=== PATIENT | female | born 1970 | race Caucasian/White ===

== ENCOUNTER 2016-10-25 06:38 | Emergency (ER) | payer SELFPAY ==
[~2016-10-25] VITALS: Ht 157.5 cm; Wt 61.4 kg
[2016-10-25 06:48] VITALS: BP 106/76; PULSE 86; RESP 16; TEMP 98.2; O2SAT 99
[2016-10-25] MEDS ORDERED: LANTUS2P SQ (06:59)
[2016-10-25] MEDS ORDERED: LIPI80TA PO (06:59)
[2016-10-25] MEDS ORDERED: NOVOLOGP2 SQ (06:59)
[2016-10-25] MEDS ORDERED: CLON.5 PO (06:59)
[2016-10-25] MEDS ORDERED: LOSA25TA PO ×2 (06:59→07:49)
[2016-10-25] MEDS ORDERED: LYRI150C PO ×2 (06:59→07:49)
[2016-10-25] MEDS ORDERED: HYDR-3533 PO (06:59)
[2016-10-25] MEDS ORDERED: VENL150T PO ×2 (06:59→07:49)
[2016-10-25 07:25] LABS: BLOOD, URINE LARGE (NEG); KETONE, URINE NEG (NEG); PH, URINE 5.5 (5.0-8.5)
[2016-10-25 07:32] LABS: GLUCOSE,URINE 1000 OR GREATER mg/dL (NEG); METHOD OF COLLECTION CLEAN CATCH; NITRITE,URINE POS (NEG); URINE COLOR YELLOW (YELLW/STRAW)
[2016-10-25 07:33] LABS: BACTERIA, URINE MANY /hpf; COMMENT (UR) CULTURE INDICATED; CULTURE IF INDICATED CULTURE INDICATED; SQUAMOUS EPITHELIAL CELL URINE 0-5 /hpf (0-5); WBC, URINE 100-200 /hpf (0-5)
[2016-10-25] MEDS ORDERED: CIPR500T2 PO (07:49)
[2016-10-25] MEDS ORDERED: ATOR1TAB18 PO (07:49)
--- NOTE | 2016-10-25 07:49 | PD ---
HPI Chief Complaint: Flank/Kidney Pain Time Seen by Provider: 07:00 Travel History International Travel<30 days: No Contact w/Intl Traveler<30days: No Traveled to known affect area: No History of Present Illness HPI This is a 46-year-old female who presents to the emergency department with 1 week of severe dysuria, frequency, urgency associated with moderate severity lower abdominal pain. She says she started to notice some tenderness in her back when someone gave her a hug. Her symptoms have been constant throughout the week and worsening. The patient has a very complex situation at home as she relocated herself to [place] to take care of her [id number] who had terminal cancer and was on hospice. She is currently unemployed and starting a new job tomorrow but doesn't have any health insurance so she is ran out of most of her medications and says she can't afford them. She has been feeling depressed but she denies any suicidal ideation and she does have some support system with neighbors in the community. PFSH Past Medical History Depression: Yes High Cholesterol: Yes Diabetes: Yes Patient Takes Glucophage: No Hypertension: Yes Musculoskeletal: Yes (SPINAL ARTHRITIS, BOLDGING DISCS) Tetanus Vaccination: < 5 Years Influenza Vaccination: Yes ?: Not Tubal Ligation: Yes Past Surgical History Hysterectomy: Yes Social History Alcohol Use: No Tobacco Use: Yes (1/2 PPD) Substance Use: Yes (WEED ON SAT) Allergies-Medications (Allergen,Severity, Reaction): Coded Allergies: No Known Allergies (Unverified , 10/25/16) Reported Meds & Prescriptions Reported Meds & Active Scripts Active Reported Novolog Inj (Insulin Aspart) 1,000 Unit/10 Ml Vial 0 SQ DIRECTED Sliding Scale as directed. Lantus Inj (Insulin Glargine) 1,000 Unit/10 Ml Vial 20 Units SQ HS Lipitor (Atorvastatin Calcium) 80 Mg Tab 80 Mg PO HS Klonopin (Clonazepam) 0.5 Mg Tab 0.5 Mg PO HS Lortab (Hydrocodone-Acetaminophen) 5-325 Mg Tab 1 Tab PO Q6H PRN Venlafaxine ER 24 HR (Venlafaxine HCl) 150 Mg Tab 150 Mg PO DAILY Losartan (Losartan Potassium) 25 Mg Tab 25 Mg PO DAILY Lyrica (Pregabalin) 150 Mg Cap 150 Mg PO BID Review of Systems Except as stated in HPI: all other systems reviewed are Neg Physical Exam Narrative GENERAL:Well appearing, no acute distress SKIN: Warm and dry. HEAD: Atraumatic. Normocephalic. EYES: Pupils equal and round. No injection or drainage. ENT: Moist mucous membranes NECK: Trachea midline. CARDIOVASCULAR: Regular rate and rhythm. No murmur appreciated. RESPIRATORY: Clear to auscultation. Breath sounds equal bilaterally. GASTROINTESTINAL: Abdomen soft, mildly palpation in the suprapubic region with no rebound or guarding. : Bilateral CVA tenderness. MUSCULOSKELETAL: No obvious deformities. NEUROLOGICAL: Awake and alert. No obvious cranial nerve deficits. Moving all extremities. PSYCHIATRIC: Appropriate mood and affect; insight and judgment normal. Data Data Last Documented VS Vital Signs Date Time Temp Pulse Resp B/P Pulse Ox O2 Delivery O2 Flow Rate FiO2 10/25/16 06:48 98.2 86 16 106/76 99 Orders Urinalysis - C+S If Indicated (10/25/16 07:15) Urine Culture (10/25/16 07:22) Labs Laboratory Tests Test 10/25/16 07:22 Urine Collection Type CLEAN CATCH Urine Color YELLOW Urine Turbidity SLIGHT Urine pH 5.5 Urine Specific [place] 1.022 Urine Protein 100 mg/dL Urine Glucose (UA) 1000 OR GREATER mg/dL Urine Ketones NEG mg/dL Urine Occult Blood LARGE Urine Nitrite POS Urine Bilirubin NEG Urine Leukocyte Esterase TRACE Urine RBC 20-24 /hpf Urine WBC 100-200 /hpf Urine WBC Clumps MANY Urine Squamous Epithelial 0-5 /hpf Cells Urine Bacteria MANY /hpf Microscopic Urinalysis Comment CULTURE INDICATED Urine Collection Time 07:22 [facility] Medical Decision Making Medical Screen Exam Complete: Yes Emergency Medical Condition: Yes Interpretation(s) Urinalysis: Urinary tract infection Differential Diagnosis Urinary tract infection, pyelonephritis, sepsis Narrative Course This is a 46-year-old female who presents to the emergency department with symptoms classic for pyelonephritis. She is nontoxic appearing and afebrile. I think it's reasonable to defer IV antibiotics and labs secondary to cost given the patient's uninsured status and she agrees. I will refill her basic medications. She was given information regarding patient assistance. Patient will be discharged with a prescription for ciprofloxacin. Diagnosis Primary Impression: Pyelonephritis Additional Impression: Depression Qualified Code: F33.1 - Moderate episode of recurrent major depressive disorder Patient Instructions: General Instructions Additional Instructions: If you develop fever, persistent vomiting, back pain, or inability to eat return to the emergency department as your urine infection may have progressed to a kidney infection. Complete your antibiotics as prescribed. Stay well hydrated with Gatorade or water. Followup with your primary care physician in 2-3 days if your symptoms have not resolved. Follow up with Mayi Sanchez in regards to psychiatric or substance related issues at: [address] [place] [address] Med/Other Pt SpecificInfo: Prescription(s) given Scripts Venlafaxine ER 24 HR 150 Mg [id number] Mg PO DAILY #30 TAB Ref 0 Prov:Farzana Cartagena MD 10/25/16 Atorvastatin 80 Mg Tab80 Mg PO HS #30 TAB Ref 0 Prov:Farzana Cartagena MD 10/25/16 Pregabalin (Lyrica)150 Mg [id number] Mg PO BID #60 CAP Ref 0 Prov:Farzana Cartagena MD 10/25/16 Losartan 25 Mg Tab25 Mg PO DAILY #30 TAB Ref 0 Prov:Farzana Cartagena MD 10/25/16 Ciprofloxacin 500 Mg [id number] Mg PO BID 7 Days Prov:Farzana Cartagena MD 10/25/16 Disposition: 01 DISCHARGE HOME Condition: Stable Farzana Cartagena MD Oct 25, 2016 07:49
== END 2016-10-25 08:04 | disposition home or self-care (01) ==
LOC: PHED 06:38
DX: N12 Tubulo-interstitial nephritis, not specified as acute or chronic (principal); F33.9 Major depressive disorder, recurrent, unspecified; E78.00 Pure hypercholesterolemia, unspecified; E11.9 Type 2 diabetes mellitus without complications; I10 Essential (primary) hypertension; F17.210 Nicotine dependence, cigarettes, uncomplicated; F12.10 Cannabis abuse, uncomplicated; Z79.4 Long term (current) use of insulin
CPT/HCPCS: 81001; 87077; 87086; 87186; 99284

== ENCOUNTER 2016-12-14 20:17 | Emergency (ER) | payer SELFPAY ==
[~2016-12-14] VITALS: Ht 157.5 cm; Wt 62.4 kg
[~2016-12-14 20:17] MED LIST: ATOR1TAB18 PO; CIPR500T2 PO; CLON.5 PO; HYDR-3533 PO; LANTUS2P SQ; LIPI80TA PO; LOSA25TA PO; LYRI150C PO; NOVOLOGP2 SQ; VENL150T PO
[2016-12-14 20:23] VITALS: BP 158/90; PULSE 91; RESP 16; TEMP 98.1; O2SAT 99
[2016-12-14] MEDS ORDERED: METF500T PO (20:35)
[2016-12-14] MEDS ORDERED: GABA800T PO (20:35)
[2016-12-14] MEDS ORDERED: SODIUM CHLORIDE 0.9% FLUSH 10 ML FLUSH IVF PRN (21:00)
[2016-12-14 21:15] VITALS: RESP 16; O2SAT 96
--- NOTE | 2016-12-14 21:25 | PD ---
HPI Chief Complaint: Laceration/Skin Injury Time Seen by Provider: 20:41 Travel History International Travel<30 days: No Contact w/Intl Traveler<30days: No Traveled to known affect area: No History of Present Illness HPI 46-year-old female with history of insulin dependent diabetes, from [place], who is here now because she is taking care of her parents estates after they , here for evaluation of painful skin cracks/laceration to the bottom of her right great toe. The patient reports history of diabetic neuropathy. She does have a callus on the medial/plantar aspect of this toe which has been evaluated by podiatry in the past. She states that a couple days ago she noticed a skin crack at the plantar aspect/base of her right great toe. Today this area became very painful for her. 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 She also tells me that she recently lost her insurance, and has been sparingly using the rest of whatever insulin she has left. PFSH Past Medical History Depression: Yes High Cholesterol: Yes Diabetes: Yes Hypertension: Yes Musculoskeletal: Yes (SPINAL ARTHRITIS, BOLDGING DISCS) Tubal Ligation: Yes Past Surgical History Hysterectomy: Yes Social History Alcohol Use: No Tobacco Use: Yes (1/2 PPD) Substance Use: Yes (WEED ON SAT) Allergies-Medications (Allergen,Severity, Reaction): Coded Allergies: No Known Allergies (Unverified , 12/14/16) Reported Meds & Prescriptions Reported Meds & Active Scripts Active Keflex (Cephalexin) 500 Mg Cap 500 Mg PO Q8H Reported Gabapentin 800 Mg Tab 800 Mg PO TID Metformin (Metformin HCl) 500 Mg Tab 500 Mg PO BIDPC With meals Novolog Inj (Insulin Aspart) 1,000 Unit/10 Ml Vial 0 SQ DIRECTED Sliding Scale as directed. Lantus Inj (Insulin Glargine) 1,000 Unit/10 Ml Vial 20 Units SQ HS Klonopin (Clonazepam) 0.5 Mg Tab 0.5 Mg PO HS Review of Systems Except as stated in HPI: all other systems reviewed are Neg Physical Exam Narrative GENERAL: Well-developed, well-nourished, comfortable, no acute distress. SKIN: Focused skin assessment warm/dry. Right great toe on the medial/plantar aspect there is a large/firm callus. Just proximal to this at the base of her great toe on the plantar aspect there is a horizontal/superficial skin crack approximately 3 cm in length. There is no surrounding warmth or erythema. No ulcerations. HEAD: Atraumatic. Normocephalic. EYES: Pupils equal and round. No scleral icterus. No injection or drainage. ENT: Mucous membranes pink and moist. NECK: Trachea midline. No JVD. CARDIOVASCULAR: Regular rate and rhythm. Bilateral dorsalis pedis pulses are brisk and equal. RESPIRATORY: No accessory muscle use. MUSCULOSKELETAL: Skin exam as above. No obvious deformities. No clubbing. No cyanosis. No edema. NEUROLOGICAL: Awake and alert. No obvious cranial nerve deficits. Motor grossly within normal limits. Normal speech. PSYCHIATRIC: Appropriate mood and affect; insight and judgment normal. Data Data Last Documented VS Vital Signs Date Time Temp Pulse Resp B/P Pulse Ox O2 Delivery O2 Flow Rate FiO2 12/14/16 21:59 82 16 139/73 96 Nasal Cannula 12/14/16 20:23 98.1 Orders Complete Blood Count With Diff (12/14/16 20:57) Comprehensive Metabolic Panel (12/14/16 20:57) Beta Hydroxybutyrate (Acetone) (12/14/16 20:57) Blood Glucose (12/14/16 20:57) Ecg Monitoring (12/14/16 20:57) Iv Access Insert/Monitor (12/14/16 20:57) Oximetry (12/14/16 20:57) NPO (12/14/16 20:57) Sodium Chloride 0.9% Flush (Ns Flush) (12/14/16 21:00) Toe (Min 2vws) (12/14/16 ) Cephalexin (Keflex) (12/14/16 22:15) Labs Laboratory Tests Test 12/14/16 21:15 White Blood Count 11.8 TH/MM3 Red Blood Count 4.72 MIL/MM3 Hemoglobin 13.7 GM/DL Hematocrit 39.2 % Mean Corpuscular Volume 82.9 FL Mean Corpuscular Hemoglobin 29.0 PG Mean Corpuscular Hemoglobin 34.9 % Concent Red Cell Distribution Width 13.5 % Platelet Count 331 TH/MM3 Mean Platelet Volume 7.5 FL Neutrophils (%) (Auto) 67.0 % Lymphocytes (%) (Auto) 23.3 % Monocytes (%) (Auto) 6.7 % Eosinophils (%) (Auto) 2.4 % Basophils (%) (Auto) 0.6 % Neutrophils # (Auto) 7.9 TH/MM3 Lymphocytes # (Auto) 2.7 TH/MM3 Monocytes # (Auto) 0.8 TH/MM3 Eosinophils # (Auto) 0.3 TH/MM3 Basophils # (Auto) 0.1 TH/MM3 CBC Comment DIFF FINAL Differential Comment Sodium Level 141 MEQ/L Potassium Level 3.3 MEQ/L Chloride Level 107 MEQ/L Carbon Dioxide Level 25.0 MEQ/L Anion Gap 9 MEQ/L Blood Urea Nitrogen 16 MG/DL Creatinine 0.65 MG/DL Estimat Glomerular Filtration 98 ML/MIN Rate Random Glucose 120 MG/DL Calcium Level 8.3 MG/DL Total Bilirubin 0.5 MG/DL Aspartate Amino Transf 22 U/L (AST/SGOT) Alanine Aminotransferase 26 U/L (ALT/SGPT) Alkaline Phosphatase 65 U/L Total Protein 7.1 GM/DL Albumin 3.3 GM/DL B-Hydroxybutyrate 0.18 MMOL/L [facility] Medical Decision Making Medical Screen Exam Complete: Yes Emergency Medical Condition: Yes Differential Diagnosis Superficial toe wound in a diabetic, osteomyelitis unlikely, cellulitis unlikely , hyperglycemia/uncontrolled diabetes, DKA Narrative Course Vital signs show heart rate 91, blood pressure 158/90, pulse ox 99% on room air , oral temp of 98.1F. CBC is essentially unremarkable. CMP is remarkable for potassium 3.3, otherwise unremarkable. Random glucose is 120. Beta hydroxybutyrate is 0.18. Right great toe x-ray: Unremarkable exam of the right first toe. This is a diabetic patient who is here for a superficial wound on her right great toe. There are no signs of infection. This is a skin crack on the dorsal aspect of the base of the toe. She also has a large callus/bunion on the medial/plantar aspect of this toe which has been there for several years. At this point my plan is to start the patient on Keflex as prophylaxis. She has no local primary care physician. I have had financial counselor speak to her about possibly obtaining patient assistance in following up in our clinic. I will also give her the name of the security control center operator on-call to follow-up with this week. I also told her that she can return to the emergency Department in 2-3 days for a wound check, but also informed her on when to return to the emergency Department sooner. She verbalizes understanding and agreement with plan. Diagnosis Primary Impression: Cracked skin on feet Referrals: Jackie Solorzano DPDior 3 days Ticker Maintainer Primary Care Physician 3 days Additional Instructions: Follow-up with a primary care physician this week. Follow-up with security control center operator Dr. Solorzano this week. Return to the emergency department for worsening symptoms or any other concerns as discussed. Scripts Fluconazole (Diflucan)150 Mg [id number] Mg PO ONCE #1 TAB Ref 0 Prov:Chirag Oliver MD 12/14/16 Cephalexin (Keflex)500 Mg Lpu001 Mg PO Q8H #30 CAP Ref 0 Prov:Chirag Oliver MD 12/14/16 Disposition: 01 DISCHARGE HOME Condition: Stable Chirag Oliver MD Dec 14, 2016 21:24
[2016-12-14 21:35] LABS: AUTOMATED NEUTROPHIL # 7.9 TH/MM3 (1.8-7.7); BASOPHIL # 0.1 TH/MM3 (0-0.2); BASOPHIL % 0.6 % (0.0-2.0); EOSINOPHIL # 0.3 TH/MM3 (0-0.4); EOSINOPHIL % 2.4 % (0.0-4.0); HEMATOCRIT 39.2 % (35.0-46.0); HEMO FLAGS DIFF FINAL; LYMPH % 23.3 % (9.0-44.0); LYMPHOCYTE # 2.7 TH/MM3 (1.0-4.8); MEAN CELL VOLUME 82.9 FL (80.0-100.0); MEAN CORPUSCULAR HGB CONC 34.9 % (32.0-36.0); MONO % 6.7 % (0.0-8.0); PLATELET COUNT 331 TH/MM3 (150-450); RED BLOOD COUNT 4.72 MIL/MM3 (4.00-5.30); RED CELL DISTRIBUTION WIDTH 13.5 % (11.6-17.2); WHITE BLOOD COUNT 11.8 TH/MM3 (4.0-11.0)
[2016-12-14 21:43] LABS: CHLORIDE 107 MEQ/L (98-107); POTASSIUM 3.3 MEQ/L (3.5-5.1); SODIUM (NA) 141 MEQ/L (136-145)
[2016-12-14 21:47] LABS: ANION GAP 9 MEQ/L (5-15); BLOOD UREA NITROGEN 16 MG/DL (7-18)
[2016-12-14 21:50] LABS: ALT (GPT) 26 U/L (10-53); AST (GOT) 22 U/L (15-37); GLOMERULAR FILTRATION RATE 98 ML/MIN (>89)
[2016-12-14 21:51] LABS: BETA-HYDROXYBUTYRATE 0.18 MMOL/L (0.00-0.39); TOTAL BILIRUBIN ADULT 0.5 MG/DL (0.2-1.0)
[2016-12-14 21:52] LABS: ALKALINE PHOSPHATASE 65 U/L (45-117)
--- NOTE | 2016-12-14 21:55 | RADHPO ---
EXAM DATE/TIME: 12/14/2016 21:21 [facility] COMPARISON: No previous studies available for comparison. INDICATIONS : Right foot, great toe pain and laceration from unknown injury. MEDICAL HISTORY : Diabetes mellitus type II. Neuropathy. SURGICAL HISTORY : None. ENCOUNTER: Initial ACUITY: 3 days PAIN SCORE: 8/10 LOCATION: Right foot, great toe. FINDINGS: Examination of the first digit of the right foot demonstrates no evidence of fracture or dislocation. No radiopaque foreign bodies are seen. The soft tissues are intact. CONCLUSION: Unremarkable examination of the right first toe. Igor Cheek Jr., MD on December 14, 2016 at 21:53 Board Certified Radiologist. This report was verified electronically.
[2016-12-14 21:59] VITALS: BP 139/73; PULSE 82; RESP 16; O2SAT 96
[2016-12-14] MEDS ORDERED: CEPH-460 PO (22:10)
[2016-12-14] MEDS ORDERED: CEPHALEXIN MONOHYDRATE 500 MG CAP PO ONE (22:15)
[2016-12-14 22:35] VITALS: BP 131/63; PULSE 77; RESP 16; O2SAT 97
[2016-12-14] MEDS ORDERED: DIFL150T PO (22:36)
== END 2016-12-14 22:43 | disposition home or self-care (01) ==
LOC: PHED 20:17
DX: S90.931A Unspecified superficial injury of right great toe, initial encounter (principal); L84 Corns and callosities; E11.9 Type 2 diabetes mellitus without complications; I10 Essential (primary) hypertension; E78.00 Pure hypercholesterolemia, unspecified; F17.200 Nicotine dependence, unspecified, uncomplicated; X58.XXXA Exposure to other specified factors, initial encounter; Z79.4 Long term (current) use of insulin; Z86.69 Personal history of other diseases of the nervous system and sense organs; Z86.59 Personal history of other mental and behavioral disorders; Z87.39 Personal history of other diseases of the musculoskeletal system and connective tissue
CPT/HCPCS: 73660; 80053; 82010; 85025; 99283

== ENCOUNTER 2017-10-24 10:45 | Emergency (ER) | payer SELFPAY ==
[~2017-10-24] VITALS: Ht 157.5 cm; Wt 57.1 kg
[~2017-10-24 10:45] MED LIST changes: -ATOR1TAB18 PO; +CEPH-460 PO; -CIPR500T2 PO; +DIFL150T PO; +GABA800T PO; -HYDR-3533 PO; -LIPI80TA PO; -LOSA25TA PO; -LYRI150C PO; +METF500T PO; -VENL150T PO
[2017-10-24 11:08] VITALS: BP 152/83; PULSE 90; RESP 18; TEMP 98.6; O2SAT 99
[2017-10-24] MEDS ORDERED: DIFL150T PO (11:49)
[2017-10-24] MEDS ORDERED: BACT800T5 PO (11:49)
--- NOTE | 2017-10-24 11:54 | PD ---
HPI Chief Complaint: Skin Problem Time Seen by Provider: 11:30 Travel History International Travel<30 days: No Contact w/Intl Traveler<30days: No Traveled to known affect area: No History of Present Illness HPI 47-year-old female that presents to the ED for evaluation of possible infection to her right ankle. Per patient she's had this lesion for about a week. Per patient is not getting better. Patient has a history of diabetes and uses insulin. She states that she noted after pain. Per patient is becoming more red and she is concerned about infection because of her diabetes. She has neuropathy says she has minimal feeling on her legs. Denies any actual injury. No fevers chills or sweats. No allergies to medication. Hasn't seen anybody for this. Pain is 2 out of 10 if any. No other medical issues. No history of MRSA or IV drug abuse. PFSH Past Medical History Depression: Yes High Cholesterol: Yes Diabetes: Yes Patient Takes Glucophage: No (OUT OF MEDICATIONS) Diminished Hearing: No Hypertension: Yes Musculoskeletal: Yes (SPINAL ARTHRITIS, BuLDGING DISCS) Tetanus Vaccination: < 5 Years Influenza Vaccination: Yes ?: Not : 2 Para: 2 Dilation and Curettage (D&C): Yes Tubal Ligation: Yes Past Surgical History Hysterectomy: Yes Social History Alcohol Use: Yes (rare) Tobacco Use: Yes (1/2 PPD) Substance Use: Yes (WEED ON SAT) Allergies-Medications (Allergen,Severity, Reaction): Coded Allergies: No Known Allergies (Unverified Adverse Reaction, Unknown, 10/24/17) Reported Meds & Prescriptions Reported Meds & Active Scripts Active Bactrim DS (Sulfamethoxazole-Trimethoprim) 800-160 Mg Tab 1 Tab PO BID 14 Days Diflucan (Fluconazole) 150 Mg Tab 150 Mg PO ONCE Keflex (Cephalexin) 500 Mg Cap 500 Mg PO Q8H Reported Gabapentin 800 Mg Tab 800 Mg PO TID Metformin (Metformin HCl) 500 Mg Tab 500 Mg PO BIDPC With meals Novolog Inj (Insulin Aspart) 1,000 Unit/10 Ml Vial 0 SQ DIRECTED Sliding Scale as directed. Lantus Inj (Insulin Glargine) 1,000 Unit/10 Ml Vial 20 Units SQ HS Klonopin (Clonazepam) 0.5 Mg Tab 0.5 Mg PO HS Review of Systems Except as stated in HPI: all other systems reviewed are Neg Physical Exam Narrative GENERAL: SKIN: Warm and dry. HEAD: Atraumatic. Normocephalic. EYES: Pupils equal and round. No scleral icterus. No injection or drainage. ENT: No nasal bleeding or discharge. Mucous membranes pink and moist. NECK: Trachea midline. No JVD. CARDIOVASCULAR: Regular rate and rhythm. RESPIRATORY: No accessory muscle use. Clear to auscultation. Breath sounds equal bilaterally. GASTROINTESTINAL: Abdomen soft, non-tender, nondistended. Hepatic and splenic margins not palpable. MUSCULOSKELETAL: Extremities without clubbing, cyanosis, or edema. No obvious deformities. Patient has full range of motion of the upper and lower extremities bilaterally. Patient does have a erythematous ulcer-like lesion on the right lateral malleolus. Erythematous. Not touching the bone. Some purulence noted. About 2 cm in diameter with erythema. NEUROLOGICAL: Awake and alert. No obvious cranial nerve deficits. Motor grossly within normal limits. Five out of 5 muscle strength in the arms and legs. Normal speech. PSYCHIATRIC: Appropriate mood and affect; insight and judgment normal. Data Data Last Documented VS Vital Signs Date Time Temp Pulse Resp B/P (MAP) Pulse Ox O2 Delivery O2 Flow Rate FiO2 10/24/17 11:08 98.6 90 18 152/83 (106) 99 Orders Orders Ed Discharge Order (10/24/17 11:48) [facility] Medical Decision Making Medical Screen Exam Complete: Yes Emergency Medical Condition: Yes Medical Record Reviewed: Yes Differential Diagnosis Cellulitis versus MRSA versus staph infection versus impetigo Narrative Course 47-year-old female that presents to the ED for evaluation of leg infection. Patient was properly examined and was found to have signs and symptoms very consistent what appears to be cellulitis. Patient will be started on Bactrim for infection. Patient was told to do wound care. Given note for work for today. Given a prescription also for Diflucan as patient states that she was gets a yeast infection n with antibiotic. Told to follow closely with PCP. See ED worsening symptoms. Diagnosis Primary Impression: Cellulitis Qualified Codes: L03.115 - Cellulitis of right lower limb Patient Instructions: General Instructions Departure Forms: Tests/Procedures, Work Release Enter return to work date: Oct 25, 2017 Additional Instructions: Take medication as prescribed. Motrin or Tylenol for pain. Keep wound covered. See ED worsening symptoms. Follow with PCP. Med/Other Pt SpecificInfo: Prescription(s) given Scripts Sulfamethoxazole-Trimethoprim (Bactrim DS) 800-160 Mg Tab 1 TAB PO BID for Infection for 14 Days, #28 TAB 0 Refills Prov: Dina Villa MD 10/24/17 Fluconazole (Diflucan) 150 Mg Tab 150 MG PO ONCE for Infection, #1 TAB 0 Refills Prov: Dina Villa MD 10/24/17 Disposition: 01 DISCHARGE HOME Condition: Stable Julio Venegas Oct 24, 2017 11:54
== END 2017-10-24 12:17 | disposition home or self-care (01) ==
LOC: PHEFT 10:45
DX: L03.115 Cellulitis of right lower limb (principal); E11.40 Type 2 diabetes mellitus with diabetic neuropathy, unspecified; E78.00 Pure hypercholesterolemia, unspecified; I10 Essential (primary) hypertension; Z79.4 Long term (current) use of insulin; Z79.84 Long term (current) use of oral hypoglycemic drugs; F17.210 Nicotine dependence, cigarettes, uncomplicated
CPT/HCPCS: 99283

== ENCOUNTER 2017-10-28 17:38 | Emergency (ER) | payer SELFPAY ==
[~2017-10-28] VITALS: Ht 157.5 cm; Wt 58.0 kg
[~2017-10-28 17:38] MED LIST changes: +BACT800T5 PO
[2017-10-28 17:56] VITALS: BP 107/61; PULSE 89; RESP 16; TEMP 98.4; O2SAT 97
--- NOTE | 2017-10-28 18:26 | PD ---
HPI Chief Complaint: Flank/Kidney Pain Time Seen by Provider: 18:01 Travel History International Travel<30 days: No Contact w/Intl Traveler<30days: No Traveled to known affect area: No History of Present Illness HPI This is a 47-year-old female who presents for flank pain. She states that this morning, she developed bilateral flank pain. She has mild suprapubic tenderness with urination. No associated fever, chills, nausea, vomiting, diarrhea. She states that her stool has been more firm than usual recently. No vaginal bleeding or discharge. She is concerned she may have a urinary infection. No ninfa dysuria, hematuria. No prior treatment. She is currently on Bactrim for a right lateral lower leg wound. This is improving. The pain is aggravated by bending and twisting. No focal weakness, numbness, tingling, saddle paresthesias, bowel or bladder dysfunction. No IV drug abuse. PFSH Past Medical History Depression: Yes High Cholesterol: Yes Diabetes: Yes (INSULIN DEPENDANT) Patient Takes Glucophage: No Diminished Hearing: No Hypertension: Yes Musculoskeletal: Yes (SPINAL ARTHRITIS, BuLDGING DISCS) Tetanus Vaccination: < 5 Years ?: Not : 2 Para: 2 Dilation and Curettage (D&C): Yes Tubal Ligation: Yes Past Surgical History Hysterectomy: Yes (PARTIAL) Social History Alcohol Use: Yes (rare) Tobacco Use: Yes (1/2 PPD) Substance Use: Yes (THC, no IVDA) Allergies-Medications (Allergen,Severity, Reaction): Coded Allergies: No Known Allergies (Unverified Adverse Reaction, Unknown, 10/28/17) Reported Meds & Prescriptions Reported Meds & Active Scripts Active Reported Novolog Inj (Insulin Aspart) 1,000 Unit/10 Ml Vial 0 SQ DIRECTED Sliding Scale as directed. Lantus Inj (Insulin Glargine) 1,000 Unit/10 Ml Vial 20 Units SQ HS Review of Systems Except as stated in HPI: all other systems reviewed are Neg Physical Exam Narrative GENERAL: Alert, well nourished, well appearing patient resting on the bed in no acute distress. Vital Signs reviewed SKIN: Focused skin assessment warm/dry. Right lateral lower leg: There is a wound with a small surrounding area of erythema. Patient showed me a picture on her phone of what the area looked like 3 days ago and it has improved. No fluctuance HEAD: Atraumatic. Normocephalic. EYES: Pupils equal and round. No scleral icterus. No injection or drainage. ENT: No nasal bleeding or discharge. Mucous membranes pink and moist. NECK: Trachea midline. No JVD. Spontaneous, painless full range of motion with no meningismus CARDIOVASCULAR: Regular rate and rhythm. No murmur appreciated. Extremities warm and well perfused with bounding peripheral pulses RESPIRATORY: No accessory muscle use. Clear to auscultation. Breath sounds equal bilaterally. Breathing easily and speaking in full sentences GASTROINTESTINAL: Abdomen soft, non-tender, nondistended. Normal bowel sounds. No rigid, rebound, guarding. Mild bilateral CVA tenderness. Negative Armendariz sign. No tenderness at McBurney's point. No midline tenderness to palpation along MUSCULOSKELETAL: No obvious deformities. No clubbing. No cyanosis. No edema. Compartments are soft. thoracic or lumbar spine NEUROLOGICAL: Awake and alert. No obvious cranial nerve deficits. Motor grossly within normal limits. Normal speech. Sensation intact. Normal gait Data Data Last Documented VS Vital Signs Date Time Temp Pulse Resp B/P (MAP) Pulse Ox O2 Delivery O2 Flow Rate FiO2 10/28/17 17:56 98.4 89 16 107/61 (76) 97 Orders Orders Complete Blood Count With Diff (10/28/17 18:28) Comprehensive Metabolic Panel (10/28/17 18:28) Lipase (10/28/17 18:28) Urinalysis - C+S If Indicated (10/28/17 18:28) Ct Abd/Pel W/O Iv Contrast (10/28/17 18:28) Iv Access Insert/Monitor (10/28/17 18:28) Sodium Chlor 0.9% 1000 Ml Inj (Ns 1000 M (10/28/17 18:28) Sodium Chloride 0.9% Flush (Ns Flush) (10/28/17 18:30) Ketorolac Inj (Toradol Inj) (10/28/17 18:30) Labs Laboratory Tests Test 10/28/17 18:30 [facility] Medical Decision Making Medical Screen Exam Complete: Yes Emergency Medical Condition: Yes Medical Record Reviewed: Yes Differential Diagnosis UTI, pyelonephritis, nephrolithiasis, musculoskeletal pain, no evidence of spinal compromise Narrative Course IV access was established. Labs, imaging were ordered. Patient was given IV fluids and Toradol. As of change of shift, patient's workup is still in progress. Care has been signed out to the oncoming emergency physician. Further evaluation, care and disposition decisions will be per Dr. Craig. Debbie Allison MD Oct 28, 2017 18:26
[2017-10-28] MEDS ORDERED: SODIUM CHLOR 0.9% 1000 ML INJ 1,000 ML IV SCH (18:28)
[2017-10-28] MEDS ORDERED: KETOROLAC TROMETHAMINE 30 MG/ML (IVP) VIAL IVP ONE (18:30)
[2017-10-28] MEDS ORDERED: SODIUM CHLORIDE 0.9% FLUSH 10 ML FLUSH IV FLUSH PRN (18:30)
[2017-10-28 19:04] LABS: AUTOMATED NEUTROPHIL # 5.9 TH/MM3 (1.8-7.7); BASOPHIL # 0.1 TH/MM3 (0-0.2); BASOPHIL % 0.7 % (0.0-2.0); BILIRUBIN, URINE NEG (NEG); BLOOD, URINE SMALL (NEG); EOSINOPHIL # 0.3 TH/MM3 (0-0.4); EOSINOPHIL % 3.8 % (0.0-4.0); GLUCOSE,URINE 1000 OR GREATER mg/dL (NEG); HEMATOCRIT 41.8 % (35.0-46.0); HEMOGLOBIN 14.8 GM/DL (11.6-15.3); KETONE, URINE NEG (NEG); LYMPH % 19.4 % (9.0-44.0); LYMPHOCYTE # 1.6 TH/MM3 (1.0-4.8); MEAN CELL VOLUME 84.4 FL (80.0-100.0); MEAN CORPUSCULAR HGB CONC 35.6 % (32.0-36.0); MEAN PLATELET VOLUME 7.9 FL (7.0-11.0); MONO % 5.3 % (0.0-8.0); MONOCYTE # 0.4 TH/MM3 (0-0.9); NEUT % 70.8 % (16.0-70.0); NITRITE,URINE NEG (NEG); PLATELET COUNT 351 TH/MM3 (150-450); RED BLOOD COUNT 4.95 MIL/MM3 (4.00-5.30); RED CELL DISTRIBUTION WIDTH 13.2 % (11.6-17.2); URINE COLOR YELLOW (YELLW/STRAW); URINE LEUKOCYTE ESTERASE NEG (NEG); WHITE BLOOD COUNT 8.3 TH/MM3 (4.0-11.0)
--- NOTE | 2017-10-28 19:10 | RADRPT ---
EXAM DATE/TIME: 10/28/2017 18:56 [place] COMPARISON: No previous studies available for comparison. INDICATIONS : Bilateral flank pain. Nausea. ORAL CONTRAST: No oral contrast ingested. RADIATION DOSE: 9.27 CTDIvol (mGy) MEDICAL HISTORY : Diabetes mellitus type 2. Hypertension. SURGICAL HISTORY : Tubal ligation. Hysterectomy. ENCOUNTER: Initial ACUITY: 2 days PAIN SCALE: 7/10 LOCATION: Bilateral flank TECHNIQUE: Volumetric scanning of the abdomen and pelvis was performed. Using automated exposure control and ad justment of the mA and/or kV according to patient size, radiation dose was kept as low as reasonably achievable to obtain optimal diagnostic quality images. DICOM format image data is available electro nically for review and comparison. FINDINGS: Lung bases are clear. Mild degenerative changes of the spine are noted. Visualized portions of liver and spleen are unremarkable. Gallbladder, pancreas, adrenals and left kidney are unremarkable. Right kidney demonstrates nonobstructing stones at the mid pole measuring 1.8 and 2.7 mm on image 27. There is no evidence of hydronephrosis or hydroureter. No ureteral stones. The bladder is unremarkable. No evidence of outlet obstruction. The appendix is normal. No adenopathy or aneurysm. Ovaries are unrem arkable. CONCLUSION: Right renal calculi are noted and are nonobstructing. No inflammatory changes are noted in the abdome n or pelvis. Morgna Pena MD on October 28, 2017 at 19:07 Board Certified Radiologist. This report was verified electronically.
[2017-10-28 19:15] LABS: CHLORIDE 94 MEQ/L (98-107); SODIUM (NA) 128 MEQ/L (136-145)
[2017-10-28 19:19] LABS: ALBUMIN 3.3 GM/DL (3.4-5.0); BICARBONATE 25.4 MEQ/L (21.0-32.0); CALCIUM 9.5 MG/DL (8.5-10.1)
[2017-10-28 19:42] LABS: RBC, URINE 0-3 /hpf (0-3)
[2017-10-28 19:43] LABS: AMORPHOUS SEDIMENT, URINE SMALL
[2017-10-28 20:00] LABS: ALKALINE PHOSPHATASE 136 U/L (45-117); ALT (GPT) 19 U/L (10-53); AST (GOT) 14 U/L (15-37); BLOOD UREA NITROGEN 28 MG/DL (7-18); GLOMERULAR FILTRATION RATE 48 ML/MIN (>89); GLUCOSE,RANDOM 430 MG/DL (74-106); TOTAL BILIRUBIN ADULT 0.2 MG/DL (0.2-1.0)
[2017-10-28] MEDS ORDERED: SODIUM CHLOR 0.9% 1000 ML INJ 1,000 ML IV ONE (20:00)
[2017-10-28] MEDS ORDERED: ONDANSETRON HCL 4 MG/2 ML VIAL IV PUSH ONE (20:00)
--- NOTE | 2017-10-28 20:58 | PD ---
Physical Exam Narrative 47-year-old female signed out to me at shift change pending CT and laboratory examinations, possible pyelonephritis by symptomatology. Patient had pyelonephritis 10 years ago which she states she was hospitalized for several days secondary to it severity. Patient currently notes feeling feverish but is unquantified, not febrile here. Patient limited examination reviewed, no significant maladies. Urinalysis not consistent with a urinary tract infection. Patient's CT abdomen pelvis ordered by Dr. mariscal revealed kidney stones in the right kidney in the parenchyma, currently no obstructive uropathy seen. Secondary to relatively negative workup laboratory and CT, patient had influenza test performed which resulted as negative. Patient will be prescribed nonnarcotic pain medications, antiemetics, encouraged to drink plenty of fluids, and discharge. Pending urine culture, no antibiotic treatment at this time Data Data Last Documented VS Vital Signs Date Time Temp Pulse Resp B/P (MAP) Pulse Ox O2 Delivery O2 Flow Rate FiO2 10/28/17 20:42 16 10/28/17 17:56 98.4 89 107/61 (76) 97 Orders Orders Complete Blood Count With Diff (10/28/17 18:28) Comprehensive Metabolic Panel (10/28/17 18:28) Lipase (10/28/17 18:28) Urinalysis - C+S If Indicated (10/28/17 18:28) Ct Abd/Pel W/O Iv Contrast (10/28/17 18:28) Iv Access Insert/Monitor (10/28/17 18:28) Sodium Chlor 0.9% 1000 Ml Inj (Ns 1000 M (10/28/17 18:28) Sodium Chloride 0.9% Flush (Ns Flush) (10/28/17 18:30) Ketorolac Inj (Toradol Inj) (10/28/17 18:30) Influenzae A/B Antigen (10/28/17 19:52) Sodium Chlor 0.9% 1000 Ml Inj (Ns 1000 M (10/28/17 20:00) Ondansetron Inj (Zofran Inj) (10/28/17 20:00) Tramadol (Ultram) (10/28/17 21:00) Labs Laboratory Tests Test 10/28/17 18:30 White Blood Count 8.3 TH/MM3 Red Blood Count 4.95 MIL/MM3 Hemoglobin 14.8 GM/DL Hematocrit 41.8 % Mean Corpuscular Volume 84.4 FL Mean Corpuscular Hemoglobin 30.0 PG Mean Corpuscular Hemoglobin Concent 35.6 % Red Cell Distribution Width 13.2 % Platelet Count 351 TH/MM3 Mean Platelet Volume 7.9 FL Neutrophils (%) (Auto) 70.8 % Lymphocytes (%) (Auto) 19.4 % Monocytes (%) (Auto) 5.3 % Eosinophils (%) (Auto) 3.8 % Basophils (%) (Auto) 0.7 % Neutrophils # (Auto) 5.9 TH/MM3 Lymphocytes # (Auto) 1.6 TH/MM3 Monocytes # (Auto) 0.4 TH/MM3 Eosinophils # (Auto) 0.3 TH/MM3 Basophils # (Auto) 0.1 TH/MM3 CBC Comment DIFF FINAL Differential Comment Urine Collection Type CLEAN CATCH Urine Color YELLOW Urine Turbidity CLEAR Urine pH 5.0 Urine Specific [place] LESS/EQUAL 1.005 Urine Protein TRACE mg/dL Urine Glucose (UA) 1000 OR GREATER mg/dL Urine Ketones NEG mg/dL Urine Occult Blood SMALL Urine Nitrite NEG Urine Bilirubin NEG Urine Urobilinogen 0.2 MG/DL Urine Leukocyte Esterase NEG Urine RBC 0-3 /hpf Urine Squamous Epithelial Cells 6-8 /hpf Urine Amorphous Sediment SMALL Microscopic Urinalysis Comment CULT NOT INDICATED Blood Urea Nitrogen 28 MG/DL Creatinine 1.20 MG/DL Random Glucose 430 MG/DL Total Protein 8.0 GM/DL Albumin 3.3 GM/DL Calcium Level 9.5 MG/DL Alkaline Phosphatase 136 U/L Aspartate Amino Transf (AST/SGOT) 14 U/L Alanine Aminotransferase (ALT/SGPT) 19 U/L Total Bilirubin 0.2 MG/DL Sodium Level 128 MEQ/L Potassium Level 4.1 MEQ/L Chloride Level 94 MEQ/L Carbon Dioxide Level 25.4 MEQ/L Anion Gap 9 MEQ/L Estimat Glomerular Filtration Rate 48 ML/MIN Lipase 241 U/L [facility] Medical Record Reviewed: Yes Supervised Visit with OLLIE: Yes Differential Diagnosis Acute polynephritis, influenza, viral syndrome, flank pain Narrative Course No obvious etiology for patient's flank pain. Please see narrative above. Diagnosis Primary Impression: Flank pain Additional Impressions: Dehydration Viral syndrome Patient Instructions: Dehydration (ED), Flank Pain (ED), General Instructions Additional Instruction: Drink plenty of fluids. Motrin/Tylenol for discomfort. Follow-up with your doctor. Return for worsening. Disposition: 01 DISCHARGE HOME Condition: Stable Herve Craig MD Oct 28, 2017 20:58
[2017-10-28] MEDS ORDERED: traMADol HCL 50 MG TAB PO ONE (21:00)
[2017-10-28 21:42] VITALS: BP 128/76
[2017-10-28 21:44] VITALS: RESP 16
== END 2017-10-28 21:44 | disposition home or self-care (01) ==
LOC: PHED 17:38
DX: R10.9 Unspecified abdominal pain (principal); E86.0 Dehydration; B34.9 Viral infection, unspecified; F32.9 Major depressive disorder, single episode, unspecified; E78.00 Pure hypercholesterolemia, unspecified; E11.9 Type 2 diabetes mellitus without complications; I10 Essential (primary) hypertension; F17.200 Nicotine dependence, unspecified, uncomplicated; F12.90 Cannabis use, unspecified, uncomplicated
CPT/HCPCS: 74176; 80053; 81001; 83690; 85025; 87804; 96361; 96374; 96375; 99284; J1885; J2405; J7030